=== PATIENT | female | born 1990 | race Caucasian/White ===

== ENCOUNTER 2017-10-06 19:57 | Emergency (ER) | payer OTHER ==
[~2017-10-06] VITALS: Ht 180.3 cm; Wt 160.7 kg
[~2017-10-06 19:57] MED LIST: BUTALB-APAP-CA1 EACH PO; FLEXERIL10 MG PO; FUTURO RESTORI1 EACH MC; LASIX20 MG PO; LIDOCAINE20 MG/1 M5 PO; LORTAB 5-325 M1 EACH PO; NAPROSYN500 MG PO; OXYCODONE H5 MG/5 ML PO; PERIOGARD480 ML MM; PREDNISONE10 MG PO; PREVIFEM1 EACH; RECLIPSEN1 EACH PO; ROBITUSSIN AC,T10 ML PO; SKELAXIN800 MG PO; TAMIFLU30 MG PO; ZOFRAN ODT4 MG PO
[2017-10-07] MEDS ORDERED: MOTRIN800 MG PO (00:08)
[2017-10-07] MEDS ORDERED: FLEXERIL10 MG PO (00:08)
[2017-10-07 00:44] VITALS: BP 140/78
== END 2017-10-07 00:46 | disposition home or self-care (01) ==
LOC: EME 19:57 → RME 19:57
DX: M62.830 Muscle spasm of back (principal); M54.5 Low back pain; G89.29 Other chronic pain; Z88.8 Allergy status to other drugs, medicaments and biological substances
CPT/HCPCS: 99281; 99284; J1885

== ENCOUNTER 2017-12-05 20:13 | Emergency (ER) | payer OTHER ==
[~2017-12-05] VITALS: Ht 180.3 cm; Wt 162.2 kg
[~2017-12-05 20:13] MED LIST changes: +MOTRIN800 MG PO
[2017-12-05 22:42] LABS: HEMATOCRIT 39.1 % (36.0-46.0); HEMOGLOBIN 13.1 G/DL (11.9-15.5); MCH 30.3 PG (29.0-34.0); MCHC 33.5 G/DL (30.0-36.0); MCV 90.3 FL (83-99); PLATELET COUNT 296 K/uL (156-360); RBC DIS.WIDTH-CV 12.8 % (11.8-14.6); RBC DIS.WIDTH-SD 41.9 % (39-53); RED BLOOD COUNT 4.33 M/uL (3.80-5.20)
[2017-12-05 22:50] LABS: CHLORIDE 107 mEq/L (99-109); POTASSIUM 3.9 mEq/L (3.7-5.4); SODIUM 138 mEq/L (136-147)
[2017-12-05 22:52] LABS: GLUCOSE 89 mg/dL (70-99)
[2017-12-05 22:56] LABS: CREATININE 0.8 mg/dL (0.6-1.3); GFR ESTIMATE (CALCULATED) > 59 mL/min/; UREA NITROGEN (BUN) 12 mg/dL (9-23)
[2017-12-05 23:04] LABS: QUANTITATIVE HCG < 4.0 MIU/ML
[2017-12-06 00:04] LABS: D-DIMER ELISA < 150.00 ng/mLDDU (<230)
[2017-12-06] MEDS ORDERED: ANTIVERT25 MG PO (00:06)
[2017-12-06 00:42] VITALS: BP 147/92
[2017-12-06 08:17] LABS: THYROTROPIN (TSH) 2.6 MIU/L (0.4-5.5)
== END 2017-12-06 00:43 | disposition home or self-care (01) ==
LOC: EME 20:13
PROVIDERS: Nurse Practitioner Family
DX: R42 Dizziness and giddiness (principal); I49.8 Other specified cardiac arrhythmias; I10 Essential (primary) hypertension; Z88.8 Allergy status to other drugs, medicaments and biological substances
CPT/HCPCS: 70450; 80048; 84443; 84702; 85027; 85379; 93005; 99281; 99285; J7030

== ENCOUNTER 2018-05-23 23:18 | Emergency (ER) | payer OTHER ==
[~2018-05-23] VITALS: Ht 180.3 cm; Wt 148.9 kg
[~2018-05-23 23:18] MED LIST changes: +ANTIVERT25 MG PO
[2018-05-23 23:55] LABS: HEMATOCRIT 37.3 % (36.0-46.0); HEMOGLOBIN 12.1 G/DL (11.9-15.5); MCH 28.3 PG (29.0-34.0); MCHC 32.4 G/DL (30.0-36.0); MCV 87.4 FL (83-99); PLATELET COUNT 340 K/uL (156-360); RBC DIS.WIDTH-CV 14.5 % (11.8-14.6); RBC DIS.WIDTH-SD 46.4 % (39-53); RED BLOOD COUNT 4.27 M/uL (3.80-5.20); WHITE BLOOD COUNT 8.7 K/uL (4.1-10.2)
[2018-05-24 00:07] LABS: ALBUMIN 4.2 g/dL (3.2-4.8); CHLORIDE 111 mEq/L (99-109); POTASSIUM 4.2 mEq/L (3.7-5.4); SODIUM 142 mEq/L (136-147)
[2018-05-24 00:10] LABS: GLUCOSE 104 mg/dL (70-99); TOTAL PROTEIN 7.1 g/dL (6.4-8.3)
[2018-05-24 00:11] LABS: TOTAL BILIRUBIN 0.3 mg/dL (0.0-1.0)
[2018-05-24 00:12] LABS: SERUM ETHYL ALCOHOL < 10 mg/dL
[2018-05-24 00:13] LABS: GFR ESTIMATE (CALCULATED) > 59 mL/min/
[2018-05-24 00:14] LABS: ALKALINE PHOSPHATASE 81 IU/L (3-129)
[2018-05-24 00:15] LABS: AST (GOT) 17 IU/L (2-34); UREA NITROGEN (BUN) 11 mg/dL (9-23)
[2018-05-24 00:17] LABS: ACETAMINOPHEN (TYLENOL) < 10 mcg/mL (10-30); ALT (GPT) 22 IU/L (3-49); SALICYLATE < 5.0 MG/DL (15-30)
[2018-05-24 01:55] LABS: AMPHETAMINE NEGATIVE (500 ng/mL); BARBITURATES NEGATIVE (200 ng/mL); BENZODIAZEPINES NEGATIVE (150 ng/mL); BUPRENORPHINE NEGATIVE (10 ng/mL); COCAINE NEGATIVE (150 ng/mL); METHADONE NEGATIVE (200 ng/mL); METHAMPHETAMINE NEGATIVE (500 ng/mL); OPIATES (MORPHINE) NEGATIVE (100 ng/mL); OXYCODONE NEGATIVE (100 ng/mL); PHENCYCLIDINE NEGATIVE (25 ng/mL); PROPOXYPHENE NEGATIVE (300 ng/mL); THC CANNABINOIDS NEGATIVE (50 ng/mL); TRICYCLIC ANTIDEPRESSANTS NEGATIVE (300 ng/mL)
[2018-05-24 01:56] LABS: APPEARANCE CLOUDY ((CLEAR)); BILIRUBIN NEGATIVE; BLOOD MODERATE; COLOR YELLOW ((YELLOW)); GLUCOSE (STRIP) NEGATIVE; KETONES NEGATIVE; LEUKOCYTES LARGE; NITRITE POSITIVE; PROTEIN (STRIP) 30; SPECIFIC GRAVITY 1.021 (1.000-1.030)
[2018-05-24 02:05] LABS: BACTERIA 3+ /HPF; EPITHELIAL CELLS 2+ /HPF; MUCUS 2+ /LPF; RED BLOOD CELLS 15-20 /HPF (0-5); UCUL ADDED? YES; WHITE BLOOD CELLS TNTC /HPF (0-5)
[2018-05-24] MEDS ORDERED: MACROBID100 MG PO (06:48)
[2018-05-24 09:57] VITALS: BP 139/69
== END 2018-05-24 10:00 ==
LOC: EME 23:18
PROVIDERS: Emergency Medicine
DX: R45.851 Suicidal ideations (principal); F32.2 Major depressive disorder, single episode, severe without psychotic features; I10 Essential (primary) hypertension; Z88.8 Allergy status to other drugs, medicaments and biological substances
CPT/HCPCS: 80053; 81003; 81025; 85027; 87077; 87086; 87186; 90837; 93005; 99281; 99285; G0480